=== PATIENT | male | born 1970 | race Caucasian/White ===

== ENCOUNTER → 2018-05-03 | Outpatient (CLI) | payer BC ==
--- NOTE | 2018-05-03 16:32 | CT ---
EXAM DESCRIPTION: Abdomen/Pelvis w/Contrast CLINICAL HISTORY: RLQ PAIN COMPARISON: None. TECHNIQUE: Postcontrast CT images of the abdomen and pelvis are obtained using standard imaging protocol. This exam was performed according to our departmental dose-optimization program, which includes automated exposure control, adjustment of the mA and/or kV according to patient size and/or use of iterative reconstruction technique . FINDINGS: Visualized lung bases are unremarkable. Liver is mildly decreased attenuation. No focal enhancing mass is seen. Surgical clips from cholecystectomy are seen without biliary tract obstruction. Area of fluid-filled diverticulum of the second portion of the duodenum near the head of pancreas measures 2.8 cm. The spleen, pancreas, and adrenal glands are unremarkable. Mild calcific atherosclerotic disease of the abdominal aorta is noted. No nephrolithiasis. No ureteral obstruction. Kidneys are unremarkable. The appendix is within normal limits. There is air in the tip of the appendix without surrounding inflammation. Urinary bladder is poorly distended. Prostate is unremarkable. The stomach and small bowel are unremarkable. Bowel obstruction or bowel wall thickening is seen. The colon is mostly decompressed and unremarkable. No significant diverticular disease is seen. No pathologic lymphadenopathy seen. Osseous structures show no aggressive bony lesions. Right greater than left foraminal encroachment at L5-S1 is seen secondary to disc disease and facet arthropathy. IMPRESSION: No CT evidence of acute appendicitis. No acute findings on CT of the abdomen and pelvis. Possible diffuse fatty infiltration of the liver. Electronically signed by: Leonel Kauffman MD 05/03/2018 4:30 PM CDT
== END ==
LOC: MRI 14:51
PROVIDERS: ATTEND Family Medicine
DX: R10.84 Generalized abdominal pain (principal); R10.31 Right lower quadrant pain

== ENCOUNTER → 2019-05-21 | Outpatient (CLI) | payer BC, OTHER ==
--- NOTE | 2019-05-21 11:14 | MRI ---
EXAM DESCRIPTION: Upper Extremity Joint,Left: MRI. CLINICAL HISTORY: 48 years Male OSTEOCHONDROPATHIES, LEFT SHOULDER COMPARISON: Radiographs of the left shoulder, [facility], 05/15/2019. TECHNIQUE: Multiplanar, high-field MRI, multiple sequences, without contrast: Left shoulder. FINDINGS: A collection of cysts and fluid can be seen on the anterior inferior aspect of the glenoid fossa and also medial to the inferior and anterior joint space. This may be associated with a tear in the anterior inferior labrum. Possible injury also to the anterior band of the inferior glenohumeral ligament. Minimal glenohumeral joint effusion. No osteochondral lesions in the glenohumeral joint surfaces. Bicipital labral anchor is intact with posterior origin. Intermediate signal in the distal supraspinatus and infraspinatus tendons with no fluid in the tendons. No fluid in the subacromial-subdeltoid bursa. Normal signal in the remaining tendons of the rotator cuff with no atrophy. Small cyst between the greater and lesser tuberosities. No fluid in the subcoracoid bursa. 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 No effusion in the AC joint. Minimal marrow edema in the bony structures. Coracoid ligaments are intact. Minimal flattening of the superior and lateral coracoacromial arch. IMPRESSION: 1. Paralabral cysts inferior and anterior glenoid which may be originating from an occult tear in the anterior aspect of the inferior labrum. Consider surgical consult. Consider post arthrogram MRI scan left shoulder for better visualization of the labral tear. No glenohumeral osteochondral injuries. 2. Tendinosis of the distal supraspinatus and infraspinatus tendons. No rotator cuff tear. No effusion in the subacromial-subdeltoid bursa. 3. 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 Fluid in the fissure between the os and the acromion indicating instability. No AC joint arthrosis. Electronically signed by: Dinesh Ding MD 05/21/2019 11:12 AM CDT
== END ==
LOC: MRI 08:09
PROVIDERS: ATTEND Family Medicine
DX: M93.81 Other specified osteochondropathies of shoulder (principal); M71.312 Other bursal cyst, left shoulder